=== PATIENT | male | born 1995 | race Asian ===

== ENCOUNTER 2018-04-03 21:30 | Emergency (ER) | payer BC, OTHER ==
[~2018-04-03] VITALS: Ht 177.8 cm; Wt 77.1 kg
--- OUTSIDE RECORDS SUMMARY | 2018-04-03 21:35 | XMS REPORT ---
Author Author ALYSON PERSAUD Organization [facility] Address [address] [place] [address] Care Team Providers Care [employer] Teacher Name Role Phone ALYSON PERSAUD Unavailable PROBLEMS Type Condition ICD9-CM Code [id number] Code Onset Dates Condition Status SNOMED Code Problem Attention deficit hyperactivity disorder (ADHD), predominantly inattentive type F90.0 Active 60127432 ALLERGIES No Information ENCOUNTERS Encounter Location Date Diagnosis [facility] [id number] [place] [phone] Jan, [facility] [id number] [place] [phone] Jan, [facility] [id number] [place] [phone] Dec, [facility] [id number] [place] [phone] Dec, Attention deficit hyperactivity disorder (ADHD), predominantly inattentive type F90.0 and Encounter for immunization Z23 IMMUNIZATIONS No Known Immunizations SOCIAL HISTORY Never Assessed REASON FOR VISIT Medication question PLAN OF CARE VITAL SIGNS MEDICATIONS Medication Instructions Dosage Frequency Start Date End Date Duration Status Vyvanse 40 mg Orally Once a day 1 capsule in the morning 24h Jan, 14 days Active RESULTS No Results PROCEDURES No Known procedures INSTRUCTIONS MEDICATIONS ADMINISTERED No Known Medications MEDICAL (GENERAL) HISTORY Type Description Date Medical History ADHD Medical History Allergies Surgical History tonsillectomy and adenoidectomy
--- OUTSIDE RECORDS SUMMARY | 2018-04-03 21:35 | XMS REPORT ---
Author Author ALYSON PERSAUD Organization [facility] Address [address] [place] [address] Care Team Providers Care Foil Wrapper Name Role Phone ALYSON PERSAUD Unavailable PROBLEMS Type Condition ICD9-CM Code [id number] Code Onset Dates Condition Status SNOMED Code Problem Attention deficit hyperactivity disorder (ADHD), predominantly inattentive type F90.0 Active [id number] ALLERGIES Substance Reaction Event Type Date Status Penicillin G Benzathine Unknown Drug Allergy Dec, Active ENCOUNTERS Encounter Location Date Diagnosis [facility] [address] [facility] [id number] [address] Dec, [facility] [id number] [address] Dec, Attention deficit hyperactivity disorder (ADHD), predominantly inattentive type F90.0 and Encounter for immunization Z23 IMMUNIZATIONS Vaccine Route Administration Date Status FLULAVAL QUAD 0.5ML (6 MO & UP) 2018 IM Intramuscular Jan 26, 2018 Administered GARDASIL 9 IM Intramuscular Jan 26, 2018 Administered SOCIAL HISTORY Never Assessed REASON FOR VISIT Establish Care-MARAL Chen, flu shot- MARAL Chen PLAN OF CARE Activity Details Follow Up 3 months or as indicated by lab Reason: VITAL SIGNS Height 69.5 in 2018-01-26 Weight 155.8 lbs 2018-01-26 Temperature 96.1 degrees Fahrenheit 2018-01-26 Heart Rate 77 bpm 2018-01-26 Respiratory Rate 18 2018-01-26 BMI 22.68 kg/m2 2018-01-26 Blood pressure systolic 104 mmHg 2018-01-26 Blood pressure diastolic 72 mmHg 2018-01-26 MEDICATIONS Unknown Medications RESULTS No Results PROCEDURES Procedure Date Ordered Result Body Site FLULAVAL QUAD 0.5ML (6 MO & UP) 2017Jan 26, 2018 SINGLE IMMUNIZATION ADMIN Jan 26, 2018 GARDISIL 9 Jan 26, 2018 IMMUNIZATION ADMIN, EACH ADD (please include units) Jan 26, 2018 INSTRUCTIONS MEDICATIONS ADMINISTERED No Known Medications MEDICAL (GENERAL) HISTORY Type Description Date Medical History ADHD Medical History Allergies Surgical History tonsillectomy and adenoidectomy
--- OUTSIDE RECORDS SUMMARY | 2018-04-03 21:35 | XMS REPORT ---
Author Author ALYSON PERSAUD Organization [facility] Address [address] [place] [address] Care Team Providers Care Probation Worker Name Role Phone ALYSON PERSAUD Unavailable PROBLEMS Type Condition ICD9-CM Code [id number] Code Onset Dates Condition Status SNOMED Code Problem Attention deficit hyperactivity disorder (ADHD), predominantly inattentive type F90.0 Active [id number] ALLERGIES No Information ENCOUNTERS Encounter Location Date Diagnosis [facility] [id number] [address] Jan, [facility] [id number] [place] [address] Dec, [facility] [id number] [place] [address] Dec, Attention deficit hyperactivity disorder (ADHD), predominantly inattentive type F90.0 and Encounter for immunization Z23 IMMUNIZATIONS No Known Immunizations SOCIAL HISTORY Never Assessed REASON FOR VISIT Medication question PLAN OF CARE VITAL SIGNS MEDICATIONS Medication Instructions Dosage Frequency Start Date End Date Duration Status Vyvanse 40 mg Orally Once a day 1 capsule in the morning 24h Dec, Active RESULTS No Results PROCEDURES No Known procedures INSTRUCTIONS MEDICATIONS ADMINISTERED No Known Medications MEDICAL (GENERAL) HISTORY Type Description Date Medical History ADHD Medical History Allergies Surgical History tonsillectomy and adenoidectomy
--- NOTE | 2018-04-03 21:58 | ED Fever ---
History of Present Illness General Stated Complaint: FEVER,COUGH Source: patient Exam Limitations: no limitations History of Present Illness Date Seen by Provider: Apr 03, 2018 Time Seen by Provider: 21:57 Initial Comments To ER with a three-day history of cough, fever, sore throat. He took Tylenol before coming here. Timing/Duration: constant Fever Quality: greater than 100.5 F Fever Therapy ARCHITECTURE MANAGER: Tylenol Associated Symptoms: cough; No nausea/vomiting, No rash, No shortness of breath ; sore throat Allergies and Home Medications Allergies Coded Allergies: No Known Drug Allergies (Unverified , 04/03/18) Patient Home Medication List Home Medication List Reviewed: Yes Review of Systems Review of Systems Constitutional: see HPI EENTM: see HPI Respiratory: see HPI, cough Cardiovascular: no symptoms reported Genitourinary: no symptoms reported Musculoskeletal: no symptoms reported Skin: no symptoms reported Psychiatric/Neurological: No Symptoms Reported Past [id number] Hx Patient Social History Recent Foreign Travel: No Contact w/Someone Who Travel: No Physical Exam Capillary Refill : Height: '" Weight: lbs. oz. kg; BMI Method: General Appearance: WD/WN, no apparent distress Eyes: Bilateral Eye Normal Inspection, Bilateral Eye PERRL, Bilateral Eye EOMI HEENT: PERRL/EOMI, normal ENT inspection, TMs normal, pharyngeal erythema Neck: lymphadenopathy (R), lymphadenopathy (L) Respiratory: lungs clear, normal breath sounds, no respiratory distress, no accessory muscle use Cardiovascular: no murmur, tachycardia Gastrointestinal: normal bowel sounds, non tender, soft Neurologic/Psychiatric: alert, normal mood/affect, oriented x 3 Skin: normal color, warm/dry Progress/Results/Core Measures Suspected Sepsis SIRS Temperature: Pulse: Respiratory Rate: Blood Pressure / Mean: Results/Orders Lab Results Laboratory Tests Test 04/03/18 20:58 Range/Units Group A Streptococcus Screen NEGATIVE NEGATIVE Micro Results Microbiology 04/03/18 Influenza Types A,B Antigen (MARY) - Final, Complete My Orders Orders - DESIRAE HAMPTON APRN Influenza A And B Antigens (04/03/18 21:54) Rapid Strep A Screen (04/03/18 21:54) Chest Pa/Lat (2 View) (04/03/18 21:54) Ibuprofen Tablet (Motrin Tablet) (04/03/18 22:00) Medications Given in ED Current Medications Medications Dose Ordered Sig/Trang Route Start Time Stop Time Status Last Admin Dose Admin Ibuprofen 800 mg ONCE ONCE PO 04/03/18 22:00 04/03/18 22:01 DC 04/03/18 22:00 800 MG Vital Signs/I&O Capillary Refill : Departure Impression Primary Impression: Influenza Disposition: HOME, SELF-CARE Condition: Stable Departure-Patient Inst. Decision time for Depature: 22:28 Referrals: NO,LOCAL PHYSICIAN (PCP/Family) Primary Care Physician Patient Instructions: Flu, Adult (DC) Add. Discharge Instructions: 1. He tested positive for influenza A. You may use [id number] cough and cold medications such as NyQuil or Robitussin. Tylenol and Motrin for fevers. Since you're not within the first 48 hours of this illness, Tamiflu is not helpful. This will last for about one week. Plenty of fluids to stay hydrated. Work/School Note: Work Release Form Date Seen in the Emergency Department: Apr 03, 2018 Return to Work: Apr 06, 2018 DESIRAE HAMPTON APRN Apr 03, 2018 21:58
[2018-04-03] MEDS ORDERED: IBUPROFEN 800 MG (MOTRIN) TAB PO ONE (22:00)
--- NOTE | 2018-04-03 22:13 | NUR ---
Lab called stated pt tested positive for Flu A
[2018-04-03 22:50] VITALS: BP 119/71
--- NOTE | 2018-04-04 06:44 | Diagnostic Imaging Report ---
Indication: Dyspnea with cough and congestion for 4 days. Comparison: None. Discussion: Two views of the chest were obtained. Normal heart size. No focal consolidation, pleural fluid, or pneumothorax. No osseous abnormality. Impression: 1. Negative chest. Dictated by: Dictated on workstation # [id number]
== END 2018-04-03 22:50 | disposition home or self-care (01) ==
LOC: ER 21:32
DX: J11.1 Influenza due to unidentified influenza virus with other respiratory manifestations (principal)
CPT/HCPCS: 71046; 87430; 87804